=== PATIENT | male | born 1995 | race Caucasian/White ===

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

== ENCOUNTER → 2017-06-04 | Outpatient (CLI) | payer BC ==
[~2017-06-04] MED LIST: OPTIRAY 320 IV PRN
--- NOTE | 2017-06-04 08:14 | DIAGNOSTIC IMAGING REPORT ---
CT SCAN OF THE NECK WITH IV CONTRAST CLINICAL HISTORY: Chronic sore throat. COMPARISON STUDY: No priors. TECHNIQUE: Following the IV administration of 94 cc of Optiray 320, CT scan of the soft tissues of the neck was performed from the skull base to the upper chest. Images are reviewed in the axial, sagittal, and coronal planes. IV contrast was administered without complication. A dose lowering technique was utilized adhering to the principles of ALARA. CT DOSE: 388.80 mGycm FINDINGS: Pharynx: The nasopharynx, oropharynx, and laryngeal pharynx are normal in appearance. The pharyngeal airway is widely patent. There is no evidence of mass lesion. The vocal cords are symmetric. The parapharyngeal fat is well maintained. The prevertebral/retropharyngeal soft tissues are within normal limits. There is nonspecific prominence of the tonsils. No tonsillar abscess is identified. Soft tissues: A cutaneous marker has been placed over the right neck. This overlies the right submandibular gland. No concerning mass lesion or adenopathy is identified. Lymphadenopathy: No cervical lymphadenopathy is seen. Thyroid: Normal in size and attenuation. Salivary glands: The parotid and submandibular glands are within normal limits. Brain parenchyma: The visualized brain parenchyma at the skull base is normal in appearance. Vascular structures: The carotid arteries and jugular veins are widely patent. Skeletal structures: Imaged portions of the calvarium at the skull base are within normal limits. The cervical spine appears intact. Sinuses and mastoids: Trace mucosal thickening is seen in the maxillary antra. The remaining visualized paranasal sinuses are clear. The mastoid air cells are well pneumatized. Lung apices: Visualized apical lung parenchyma is clear. IMPRESSION: 1. No acute abnormality is identified. 2. The cutaneous marker placed at the site of interest in the right neck overlies the submandibular gland. 3. There is nonspecific prominence of the tonsils. Correlate with direct visualization. Electronically signed by: Elliott Brown M.D. 06/04/2017 8:13 AM Dictated Date/Time: 06/04/2017 8:08 AM
== END | disposition home or self-care (01) ==
LOC: C.CTS 07:27
PROVIDERS: ATTEND Otolaryngology
DX: D37.05 Neoplasm of uncertain behavior of pharynx (principal)

== ENCOUNTER 2017-07-04 08:40 | Emergency (ER) | payer BC ==
[~2017-07-04] VITALS: Ht 182.9 cm; Wt 91.0 kg
[2017-07-04 08:46] VITALS: Ht 182.9 cm; Wt 91.0 kg
[2017-07-04] MEDS ORDERED: KETOROLAC TROMETHAMINE 30 MG/ML VIAL IV STA (09:27)
[2017-07-04] MEDS ORDERED: SODIUM CHLORIDE 0.9% 1000ML 1,000 ML IV ONE (09:30)
[2017-07-04] MEDS ORDERED: OPTIRAY 320 IV PRN (10:15)
[2017-07-04 10:42] LABS: BASO % 0.4 %; BASO ABS # 0.02 K/uL (0-0.2); EOS % 5.1 %; EOS ABS # 0.27 K/uL (0-0.5); HEMATOCRIT 41.7 % (42-52); HEMOGLOBIN 14.5 g/dL (14.0-18.0); IG# 0.01 K/uL (0.00-0.02); LYMPH % 26.7 %; LYMPH ABS # 1.42 K/uL (1.2-3.4); MEAN CELL VOLUME 84.6 fL (80-100); MEAN CORPUSCULAR HEMOGLOBIN 29.4 pg (25-34); MEAN CORPUSCULAR HGB CONC 34.8 g/dl (32-36); MEAN PLATELET VOLUME 10.3 fL (7.4-10.4); MONO % 15.6 %; MONO ABS # 0.83 K/uL (0.11-0.59); NEUT ABS # 2.76 K/uL (1.4-6.5); PLATELET COUNT 188 K/uL (130-400); RED CELL DISTRIBUTION WIDTH CV 13.3 % (11.5-14.5); RED CELL DISTRIBUTION WIDTH SD 40.6 fL (36.4-46.3); WHITE BLOOD COUNT 5.31 K/uL (4.8-10.8)
[2017-07-04 10:59] LABS: CALCIUM 9.4 mg/dl (8.5-10.1); CREATININE 1.14 mg/dl (0.60-1.40)
--- NOTE | 2017-07-04 11:53 | DIAGNOSTIC IMAGING REPORT ---
SOFT TISSUE NECK WITH HISTORY: 22 years-old Male Right sided submandibular swelling/mass acute right-sided submandibular neck swelling COMPARISON: CT soft tissue neck study 06/04/2017 TECHNIQUE: Multiple axial CT images of the soft tissues of the neck were obtained following the intravenous administration of 120 mL Optiray 320 IV contrast. A dose lowering technique was used consistent with the principals of ALESSANDRO. FINDINGS: Moderate enlargement of the adenoid tonsils causes moderate narrowing of the nasopharynx. There is moderate prominence of the bilateral palatine tonsils resulting in mild narrowing of the oral pharynx. Edema is noted within the right parapharyngeal fat plane, image 176 series 3 which is asymmetric compared to the left. No evidence of focal peritonsillar abscess. Mild prominence of the lingual tonsils. The vallecula and piriform sinuses are unremarkable. The epiglottis and aryepiglottic folds are within normal limits. The glottis and subglottic airway is patent. There is enlargement of the bilateral submandibular glands, right greater than left which appear heterogeneous demonstrating interstitial edema. Additionally, there is moderate deep tissue edema surrounding the right submandibular gland tracking along the right platysma musculature and deep tissues about the right neck extending to the level of the thyroid. Mildly prominent level 1 lymph nodes on the right measure up to 9 mm, likely reactive. No drainable fluid collections or obstructing sialolith identified. No suspicious mass lesions. No ductal dilation. The bilateral parotid glands are unremarkable and within normal limits. No dominant thyroid nodule. Lung apices are clear without pneumothorax. Imaged vascular structures are within normal limits. Image intracranial structures demonstrate no acute abnormality. Cervical spine and bony structures appear intact. Mastoid air cells and middle ear cavities are clear. Moderate mucoperiosteal thickening about the ethmoid air cells and maxillary sinuses with mild frontal and ethmoid sinus disease. Bilateral negin bullosa, left greater than right. IMPRESSION: 1. Heterogeneous enlargement of the bilateral submandibular glands right greater than left with interstitial glandular edema and moderate deep tissue edema about the right submandibular gland tracking along the right platysma musculature suggests acute sialadenitis without evidence of drainable fluid collection or obstructing sialolith. 2. Mildly prominent right level I lymph nodes are likely reactive. 3. Moderate enlargement of the adenoid and palatine tonsils, possibly reflecting tonsillitis. Correlate with direct visualization. No peritonsillar abscess. 4. Paranasal sinus disease as above. The above report was generated using voice recognition software. It may contain grammatical, syntax or spelling errors. Electronically signed by: Juan Pablo Garcia M.D. 07/04/2017 11:52 AM Dictated Date/Time: 07/04/2017 11:43 AM
[2017-07-04 14:20] VITALS: BP 129/77; PULSE 70; TEMP 37.2; O2SAT 100
--- NOTE | 2017-07-05 08:06 | EMERGENCY ROOM VISIT NOTE ---
ED Visit Note First contact with patient: 09:13 Chief Complaint: I have a large lump on the side of my right neck. History of Present Illness: Mr. Ruiz is a 22-year-old white male who ambulates into the ED complaining of right sided neck pain, difficulty swallowing and breathing. Historically patient reports she has a history of chronic sore throats. In May 2017 he had a IV contrast soft tissue neck CT which showed nonspecific prominence of the tonsils; patient reports there was concern for possible cancer. Patient reports he has been having upper respiratory tract symptoms for the last 6 days including nonproductive cough, body aches, fevers. He has been using [id number] medications without relief of his discomfort. Patient goes on to report that yesterday he noted mild swelling to the right side of the throat. Initially associated discomfort was minimal but this morning after waking his pain became severe and he had noticed a significant increase in the lump. Currently he is complaining of a sharp pain over the lateral right neck below the mandible. He rates his discomfort 7/10. His pain is nonradiating. His pain worsens with palpation and swallowing. He has not identified any alleviating factors related to the pain. He has not taken any additional pain medications this morning for his symptoms. Associated with his pain he reports he has been having difficulty swallowing and feels short of breath. He denies chills, sweats, skin eruptions, skin color changes, headache, dizziness, lightheadedness, painful talking, drooling, neck pain/stiffness, wheezing, hemoptysis, chest pain/discomfort, palpitations, orthopnea, dependent edema, previous clots, claudication, recent surgery/extended travel/activity, nausea, vomiting. Review of Systems: As noted above in history of present illness. All body systems were reviewed and found to be negative as noted above. Past Medical History: As previously noted. Current Medications: Patient denies. Allergies to Medications: Patient denies. Social History: Patient is a university student; he feels safe in his home environment; he denies tobacco use. Physical Examination: Vital Signs: Date Time Temp Pulse Resp B/P (MAP) Pulse Ox O2 Delivery O2 Flow Rate FiO2 07/04/17 14:20 37.2 70 18 129/77 100 07/04/17 13:28 37.5 69 18 135/74 99 Room Air 07/04/17 11:58 65 18 132/72 97 Room Air 07/04/17 10:23 80 18 138/77 97 Room Air 07/04/17 08:46 37.2 105 18 159/92 99 Room Air GENERAL: 22-year-old male in moderate distress due to pain, nontoxic-appearing, afebrile and hemodynamically stable. NEUROLOGICAL: Awake, alert and oriented to person, place and time. Answering questions appropriately and following commands. Normal gait. Good hand eye coordination. No focal motor sensory deficits. SKIN: Warm, dry and pink. No soft tissue eruptions or trauma noted. HEENT: Atraumatic and normocephalic. External ears are nontender. Auditory canals are pink and patent. Tympanic membrane was pearly leija with normal light reflex bilaterally. PERRLA. Sclera white and conjunctiva pink. No drainage from naris. Oral cavity moist and pink. Airway is patent. Pharynx is nonerythematous or edematous. Mild enlargement of the tonsils without exudative material. Speech normal and clear. Large mass/swelling over the right lateral neck inferior to the jawline. Questionable cervical chain lymphadenopathy on the right. No cervical or submandibular lymphadenopathy on the left. No auditory or ausculatory stridor. Trachea midline. No jugular venous distention. BACK: No tenderness over the bony spine. No nuchal rigidity or meningismus. Full range of motion of the cervical spine. No CVA tenderness. THORAX: Lungs sounds are clear to auscultation and equal bilaterally with symmetrical chest wall. No wheezing, rales or rhonchi. HEART: Regular rate and rhythm. No gallops, rubs or murmurs are appreciated. ABDOMEN: Flat, soft and nontender. Positive bowel sounds in all quadrants. No guarding, rigidity or organomegaly. EXTREMITIES: Moves all extremities well on command and with purpose. All distal neurovascular statuses are intact and equal bilaterally. ED Course: Patient is assessed as noted above. Patient's medication list was reviewed. Laboratory Testing: Test 07/04/17 10:08 07/04/17 10:20 Range/Units White Blood Count 5.31 4.8-10.8 K/uL Red Blood Count 4.93 4.7-6.1 M/uL Hemoglobin 14.5 14.0-18.0 g/dL Hematocrit 41.7 42-52 % Mean Corpuscular Volume 84.6 80-100 fL Mean Corpuscular Hemoglobin 29.4 25-34 pg Mean Corpuscular Hemoglobin Concent 34.8 32-36 g/dl Platelet Count 188 130-400 K/uL Mean Platelet Volume 10.3 7.4-10.4 fL Neutrophils (%) (Auto) 52.0 % Lymphocytes (%) (Auto) 26.7 % Monocytes (%) (Auto) 15.6 % Eosinophils (%) (Auto) 5.1 % Basophils (%) (Auto) 0.4 % Neutrophils # (Auto) 2.76 1.4-6.5 K/uL Lymphocytes # (Auto) 1.42 1.2-3.4 K/uL Monocytes # (Auto) 0.83 0.11-0.59 K/uL Eosinophils # (Auto) 0.27 0-0.5 K/uL Basophils # (Auto) 0.02 0-0.2 K/uL RDW Standard Deviation 40.6 36.4-46.3 fL RDW Coefficient of Variation 13.3 11.5-14.5 % Immature Granulocyte % (Auto) 0.2 % Immature Granulocyte # (Auto) 0.01 0.00-0.02 K/uL Sodium Level 137 136-145 mmol/L Potassium Level 4.0 3.5-5.1 mmol/L Chloride Level 105 98-107 mmol/L Carbon Dioxide Level 29 21-32 mmol/L Anion Gap 3.0 3-11 mmol/L Blood Urea Nitrogen 9 7-18 mg/dl Creatinine 1.14 0.60-1.40 mg/dl Est Creatinine Clear Calc Drug Dose 113.5 ml/min Estimated GFR () 106.7 Estimated GFR (Non- 92.1 BUN/Creatinine Ratio 8.2 10-20 Random Glucose 92 70-99 mg/dl Calcium Level 9.4 8.5-10.1 mg/dl Monoscreen NEG NEG Group A Streptococcus Screen: Negative. Culture pending. Mumps Antibody Testing: Pending. IV Contrast Soft Tissue Neck CT: Was reviewed by myself and shows heterogeneous enhancement of the bilateral submandibular glands greater on the right than the left. Interstitial granular edema and moderate deep tissue edema about the right submandibular gland tracking along the right platysma muscle suggestive of acute sialadenitis. No evidence of drainable fluid collection or obstructing sialolith. Mildly prominent right level 1 lymph node. Moderate enlargement of the adenoid and palatine tonsils. No peritonsillar abscess. Paranasal sinus disease. Patient was hydrated with normal saline and received 30 mg of Toradol IV for pain. Patient was reassessed multiple times during his stay in the emergency department. Patient's case was reviewed with Dr. Ramos; we agreed on diagnostic approach , treatment, disposition and plan. [facility] was consulted for return to school procedures for possible mumps. Patient was educated about today's findings and instructed on his treatment plan ; he verbalized understanding and agreement with this plan. Clinical Impression: Sialadenitis. Questionable mumps. Decision-Making: Initially my differential diagnosis I considered adenitis, parotid stone, parotid infection, dental abscess and other causes. Disposition: Patient discharged home in stable condition; prior to departure he was reassessed and subjectively reported he was feeling much better and rated his discomfort 3/10. Plan: Patient was encouraged alternate ibuprofen and acetaminophen every 3 hours as needed for pain. While in the emergency department patient received a call from [facility] and was told that his strep screen was positive from his previous visit and he was prescribed antibiotics. Patient was encouraged to stay well-hydrated with increased clear fluids and avoid alcohol. Patient was encouraged to considered a liquid or mechanical soft diet until resolution of throat discomfort. Patient is encouraged to seclude himself in his room as [place] and individual bathroom for the next 5 days; patient was told he could return to class in 5 days after the onset of his swelling. Patient was encouraged to follow-up at [facility] for recheck in 4-5 days. Patient was encouraged return the ED for worsening/uncontrolled pains, fevers, inability to swallow, painful talking, drooling, vomiting or any new/concerning symptoms.
== END 2017-07-04 14:21 | disposition home or self-care (01) ==
LOC: C.EDB 08:42 → C.EDA 14:21
DX: K11.20 Sialoadenitis, unspecified (principal); R22.1 Localized swelling, mass and lump, neck